=== PATIENT | male | born 1960 | race Caucasian/White ===

== ENCOUNTER 2019-07-02 07:05 | Emergency (ER) | payer BC ==
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
== END 2019-07-02 09:41 | disposition home or self-care (01) ==
LOC: JD.ED 07:05
DX: M17.12 Unilateral primary osteoarthritis, left knee (principal); I10 Essential (primary) hypertension; Z88.0 Allergy status to penicillin; Z79.899 Other long term (current) drug therapy
CPT/HCPCS: 73562-26-LT; 73562-LT; 99283; 99283-25